=== PATIENT | male | born 1940 | race Caucasian/White ===

== ENCOUNTER 2021-04-04 16:42 | Inpatient (IN) ==
[2021-04-04] MEDS ORDERED: 0.9 % Sodium Chloride 1,000 ML IV ONE (17:03)
[2021-04-04 17:20] LABS: Basophils % 0.3 %; Eosinophils % 0.2 %; Hematocrit 52.3 % (37.5-50.1); Hemoglobin 18.4 g/dL (12.9-16.9); Immature Granulocytes % 0.5 % (0-4); Lymphocytes # 0.8 K/mcL (0.6-4.6); Lymphocytes % 6.5 %; Mean Corpuscular HGB Conc 35.2 g/dL (31.6-35.5); Mean Corpuscular Hemoglobin 32.5 pg (28.0-33.3); Mean Corpuscular Volume 92.2 fL (83.0-100.0); Mean Platelet Volume 9.3 fL (9.4-12.4); Monocytes % 7.5 %; Neutrophils # 10.8 K/mcL (1.6-8.9); Platelet Count 220 K/mcL (140-400); Red Blood Count 5.67 M/mcL (4.19-5.50); Red Cell Distribution Width 11.9 % (11.5-14.5); White Blood Count 12.7 K/mcL (4.3-11.1)
[2021-04-04 17:28] LABS: Prothrombin Time 11.7 Seconds (9.4-12.1)
[2021-04-04 17:39] LABS: Alanine Aminotransferase 14 Units/L (7-52); Albumin 3.9 g/dL (3.5-5.7); Albumin/Globulin Ratio 1.3 (1.1-2.2); Alkaline Phosphatase 64 Units/L (34-104); Aspartate Amino Transferase 11 Units/L (13-39); BUN/Creatinine Ratio 12 (6-26); Bilirubin,Total 0.7 mg/dL (0.3-1.0); Blood Urea Nitrogen 14 mg/dL (8-23); Calcium 9.1 mg/dL (8.6-10.3); Carbon Dioxide 26 mEq/L (23-29); Chloride 96 mEq/L (98-107); Globulin 2.9 g/dL (2.4-3.5); Glucose 230 mg/dL (70-105); Magnesium 1.6 mg/dL (1.6-2.6); Osmolality,Calculated 280 (280-300); Phosphorous 1.7 mg/dL (2.7-4.5); Potassium 4.6 mEq/L (3.5-5.1); Sodium 131 mEq/L (136-145); Total Protein 6.8 g/dL (6.4-8.9); eGFR For African Americans > 60 (> 60); eGFR For Non-African Americans > 60 (> 60)
[2021-04-04 17:40] LABS: Troponin I < 0.03 ng/mL (< 0.04)
[2021-04-04] MEDS ORDERED: Isovue-370 500 ML BOTTLE IVP ONE (18:40)
[2021-04-04 18:53] LABS: Bilirubin,Urine Negative (Negative); Blood,Urine Trace-lysed (Negative); Clarity,Urine Clear (Clear); Color,Urine Yellow (Yellow); Glucose,Urine (UA) >=1000 mg/dL (Normal); Ketones,Urine 15 mg/dL (Negative); Leukocyte Esterase,Urine Negative (Negative); Nitrite,Urine Negative (Negative); Protein,Urine 100 mg/dL (Neg-Trace); Urobilinogen,Urine Normal (Normal)
[2021-04-04 19:09] LABS: Mucus,Urine Few per lpf (None-Few); Squamous Epithelial Cell,Urine Few per hpf (None-Few)
[2021-04-04] MEDS ORDERED: 0.9 % Sodium Chloride 1,000 ML IVC SCH (21:45)
[2021-04-04] MEDS ORDERED: cefTRIAXone 1,000 MG in 0.9 % Sodium Chloride Mini Bag 100 ML IVPB ONE (21:48)
[2021-04-04] MEDS ORDERED: Naloxone 0.4 MG/ML INJ IVP PRN (22:45)
[2021-04-04] MEDS: 0.9 % Sodium Chloride 1,000 ML IVC SCH (23:39)
[2021-04-05 05:11] LABS: Basophils % 0.3 %; Eosinophils % 0.1 %; Hematocrit 48.3 % (37.5-50.1); Hemoglobin 16.9 g/dL (12.9-16.9); Immature Granulocytes % 0.5 % (0-4); Lymphocytes # 0.7 K/mcL (0.6-4.6); Lymphocytes % 5.5 %; Mean Corpuscular Hemoglobin 32.4 pg (28.0-33.3); Mean Corpuscular Volume 92.5 fL (83.0-100.0); Mean Platelet Volume 9.1 fL (9.4-12.4); Monocytes # 0.9 K/mcL (0.0-1.3); Monocytes % 7.7 %; Neutrophils # 10.2 K/mcL (1.6-8.9); Platelet Count 180 K/mcL (140-400); Red Blood Count 5.22 M/mcL (4.19-5.50); Red Cell Distribution Width 12.1 % (11.5-14.5); Segmented Neutrophils % 85.9 %; White Blood Count 11.9 K/mcL (4.3-11.1)
[2021-04-05 05:33] LABS: BUN/Creatinine Ratio 13 (6-26); Blood Urea Nitrogen 14 mg/dL (8-23); Calcium 8.1 mg/dL (8.6-10.3); Carbon Dioxide 25 mEq/L (23-29); Chloride 98 mEq/L (98-107); Glucose 236 mg/dL (70-105); Osmolality,Calculated 282 (280-300); Potassium 4.1 mEq/L (3.5-5.1); Sodium 132 mEq/L (136-145); eGFR For African Americans > 60 (> 60); eGFR For Non-African Americans > 60 (> 60)
[2021-04-05] MEDS: Acetaminophen 325 MG TABLET PO PRN (05:57)
[2021-04-05] MEDS ORDERED: Dextrose Gel 15 GM/37.5 ML TUBE PO PRN ×2 (07:17)
[2021-04-05] MEDS ORDERED: *HR* Dextrose 50 % in Water (Vial) 50 ML VIAL IVP PRN (07:17)
[2021-04-05] MEDS ORDERED: D5% in Water 1,000 ML IVC PRN (07:17)
[2021-04-05] MEDS: predniSONE 5 MG TABLET PO SCH (07:54)
[2021-04-05] MEDS: Loratadine 10 MG TABLET PO SCH (07:55)
[2021-04-05] MEDS: lisinopriL 10 MG TABLET PO SCH (07:55)
[2021-04-05] MEDS: Famotidine 20 MG TABLET PO SCH ×2 (07:55→21:00)
[2021-04-05] MEDS: (Linagliptin [Tradjenta] 5 MG Tablet) PO SCH (07:55)
[2021-04-05] MEDS: Insulin LISPRO 300 UNITS/3 ML VIAL SUBQ SCH ×4 (07:59→21:00)
[2021-04-05] MEDS ORDERED: *HR* Metformin 500 MG TABLET PO SCH (09:00)
[2021-04-05] MEDS ORDERED: Pyridostigmine Br 60 MG TABLET PO SCH (09:00)
[2021-04-05] MEDS ORDERED: Perflutren Lipid Microsphere 1.3 ML in 0.9 % Sodium Chloride 8.7 ML IVP PRN (11:32)
[2021-04-05 16:59] LABS: Estimated Average Glucose 217 mg/dl; Hemoglobin A1C 9.2 %
[2021-04-05] MEDS: 0.9 % Sodium Chloride 1,000 ML IVC SCH (20:58)
[2021-04-05] MEDS: Pyridostigmine Br 60 MG TABLET PO SCH (21:00)
[2021-04-05] MEDS: cefTRIAXone 1,000 MG in Water for inj. (sterile) 10 ML IVP SCH (22:42)
[2021-04-06] MEDS: Acetaminophen 325 MG TABLET PO PRN (02:37)
[2021-04-06] MEDS: *HR* Enoxaparin 40 MG/0.4 ML SYRINGE SQ SCH (06:29)
[2021-04-06 06:32] LABS: Hematocrit 47.8 % (37.5-50.1); Hemoglobin 16.7 g/dL (12.9-16.9); Mean Corpuscular HGB Conc 34.9 g/dL (31.6-35.5); Mean Corpuscular Hemoglobin 32.6 pg (28.0-33.3); Mean Corpuscular Volume 93.4 fL (83.0-100.0); Mean Platelet Volume 9.1 fL (9.4-12.4); Platelet Count 171 K/mcL (140-400); Red Blood Count 5.12 M/mcL (4.19-5.50); Red Cell Distribution Width 12.2 % (11.5-14.5)
[2021-04-06 07:03] LABS: BUN/Creatinine Ratio 14 (6-26); Blood Urea Nitrogen 15 mg/dL (8-23); Calcium 8.2 mg/dL (8.6-10.3); Carbon Dioxide 27 mEq/L (23-29); Chloride 100 mEq/L (98-107); Cholesterol 225 mg/dL (< 200); Glucose 245 mg/dL (70-105); HDL Cholesterol 28 mg/dL (40-59); Osmolality,Calculated 287 (280-300); Potassium 4.1 mEq/L (3.5-5.1); Sodium 134 mEq/L (136-145); Triglycerides 653 mg/dL (< 150); eGFR For African Americans > 60 (> 60); eGFR For Non-African Americans > 60 (> 60)
[2021-04-06] MEDS: predniSONE 5 MG TABLET PO SCH (10:04)
[2021-04-06] MEDS: Pyridostigmine Br 60 MG TABLET PO SCH ×4 (10:04→19:55)
[2021-04-06] MEDS: Loratadine 10 MG TABLET PO SCH (10:04)
[2021-04-06] MEDS: Insulin LISPRO 300 UNITS/3 ML VIAL SUBQ SCH ×4 (10:05→19:57)
[2021-04-06] MEDS: Famotidine 20 MG TABLET PO SCH ×2 (10:05→19:55)
[2021-04-06] MEDS: (Linagliptin [Tradjenta] 5 MG Tablet) PO SCH (10:05)
[2021-04-06] MEDS: lisinopriL 10 MG TABLET PO SCH (10:05)
[2021-04-06] MEDS: 0.9 % Sodium Chloride 1,000 ML IVC SCH (19:56)
[2021-04-06] MEDS: cefTRIAXone 1,000 MG in Water for inj. (sterile) 10 ML IVP SCH (22:20)
[2021-04-07] MEDS: Acetaminophen 325 MG TABLET PO PRN (01:57)
[2021-04-07 06:29] VITALS: BP 132/73
[2021-04-07] MEDS: *HR* Enoxaparin 40 MG/0.4 ML SYRINGE SQ SCH (06:43)
[2021-04-07] MEDS: Insulin LISPRO 300 UNITS/3 ML VIAL SUBQ SCH (08:05)
[2021-04-07] MEDS: lisinopriL 10 MG TABLET PO SCH (08:05)
[2021-04-07] MEDS: predniSONE 5 MG TABLET PO SCH (08:05)
[2021-04-07] MEDS: Pyridostigmine Br 60 MG TABLET PO SCH (08:05)
[2021-04-07] MEDS: Famotidine 20 MG TABLET PO SCH (08:05)
[2021-04-07] MEDS: Loratadine 10 MG TABLET PO SCH (08:05)
[2021-04-07] MEDS: (Linagliptin [Tradjenta] 5 MG Tablet) PO SCH (08:06)
== END 2021-04-07 11:18 | disposition home health service (06) | DRG 281 ==
LOC: INPPIK 16:42 → EMEROOPIK 16:42 → INPPIK 22:40
PROVIDERS: ADMIT Family Medicine; ATTEND Family Medicine